=== PATIENT | female | born 1995 | race Two or more races ===

== ENCOUNTER 2016-11-05 23:30 | Emergency (ER) | payer OTHER ==
[2016-11-06 00:08] VITALS: BP 104/60; PULSE 78; TEMP 98.5; BMI 30.1
--- NOTE | 2016-11-06 00:43 | PDOC ---
History of Present Illness - General Chief Complaint: Pain Stated Complaint: CHEST DISCOMFORT Time Seen by Provider: 11/06/16 00:32 History Source: Patient Exam Limitations: No Limitations - History of Present Illness Initial Comments: 11/06/16 00:39 21yo Female patient presents to ED c/o chest pain that have been ongoing just worse today. Patient reports being 3 months and had 1 bout of diarrhea. Denies abd pain, n/v, vaginal bleeding, back pain, asthma, diff breathing, or any other complaints at this time. She reportedly takes Pre- vit, and Iron tabs. Timing/Duration: other (Today) Severity: mild Modifying Factors: worse with: cold therapy, eating, immobilization, medication , movement, rest, other Associated Symptoms: denies: denies symptoms, chest pain, cough, diaphoresis, fever/chills, headaches, loss of appetite, malaise, nausea/vomiting, rash, seizure, shortness of breath, syncope, weakness, other Aspirin Received prior to arrival: No: no aspirin today, unknown, 81 mg x 1, 81 mg x 2, 81 mg x 3, 81 mg x 4, 325 mg x 1, provided at home, provided by EMS, provided by ED [facility] Contraindications(Core Measure): No: Allergy, Other, Active Blding w/i 24 hrs., Plavix, Receiving Warfarin Past History - Travel Traveled outside of the country in the last 30 days: No Close contact w/someone who was outside of country & ill: No - Past Medical History Allergies/Adverse Reactions: Allergies Allergy/AdvReac Type Severity Reaction Status Date / Time No Known Allergies Allergy Verified 11/05/16 23:57 Home Medications: Ambulatory Orders Pnv No.122/Iron/Folic Acid [ Multi Tablet] 1 each PO DAILY 10/03/16 Ferrous Sulfate [Feosol] 325 mg PO BID 11/05/16 Anemia: Yes - Reproductive History (#): 1 Para: 0 Spontaneous : 0 - Psycho/Social/Smoking Cessation Hx Anxiety: No Suicidal Ideation: No Smoking History: Never smoked Hx Alcohol Use: No Drug/Substance Use Hx: No Substance Use Type: None Review of Systems - Review of Systems Able to Perform ROS?: Yes Is the patient limited Spanish proficient: No Constitutional: No: Chills, Fever Respiratory: No: Cough, Shortness of Breath Cardiac (ROS): Yes: Chest Pain ABD/GI: Yes: Diarrhea. No: Nausea, Vomiting : No: Burning, Dysuria Musculoskeletal: No: Back Pain Neurological: No: Headache, Dizziness All Other Systems: Reviewed and Negative *Physical Exam - Vital Signs Last Vital Signs Temp Pulse Resp BP Pulse Ox 98.5 F 78 16 104/60 98 11/05/16 23:57 11/05/16 23:57 11/05/16 23:57 11/05/16 23:57 11/05/16 23:57 - Physical Exam General Appearance: Yes: Nourished, Appropriately Dressed HEENT: positive: EOMI, LUCIA, Normal ENT Inspection, Normal Voice, Symmetrical, Pharynx Normal Neck: positive: Trachea midline, Supple. negative: Lymphadenopathy (R), Lymphadenopathy (L) Respiratory/Chest: positive: Lungs Clear, Normal Breath Sounds. negative: Chest Tender, Respiratory Distress, Accessory Muscle Use, Labored Respiration Cardiovascular: positive: Regular Rhythm, Regular Rate Gastrointestinal/Abdominal: positive: Normal Bowel Sounds, Soft Musculoskeletal: positive: Normal Inspection. 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 *DC/Admit/Observation/Transfer Diagnosis at time of Disposition: Chest pain of unknown etiology - Discharge Dispostion Disposition: HOME Condition at time of disposition: Good Admit: No - Patient Instructions Printed Discharge Instructions: DI for Atypical Chest Pain Additional Instructions: FOLLOW UP WITH YOUR PRIMARY CARE PROVIDER THIS WEEK. CALL TO SCHEDULE APPOINTMENT. TYELNOL FOR PAIN. DRINK LOTS OF FLUIDS. IF SYMPTOMS WORSEN, RETURN FOR FURTHER EVALUATION. Print Language: ESTONIAN
--- NOTE | 2016-11-06 01:11 | PDOC ---
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 CALL TO SCHEDULE APPOINTMENT. TYELNOL FOR PAIN. DRINK LOTS OF FLUIDS. IF SYMPTOMS WORSEN, RETURN FOR FURTHER EVALUATION. Print Language: LEBANESE
--- NOTE | 2016-11-06 09:55 | EKG ---
Test Reason : Blood Pressure : / mmHG Vent. Rate : 066 BPM Atrial Rate : 066 BPM P-R Int : 166 ms QRS Dur : 076 ms QT Int : 398 ms P-R-T Axes : 053 084 055 degrees QTc Int : 417 ms NORMAL SINUS RHYTHM WITH SINUS ARRHYTHMIA NORMAL ECG NO PREVIOUS ECGS AVAILABLE Confirmed by MURIEL KARIMI, LEROY ([id number]) on 11/06/2016 9:55:03 AM Referred By: Overread By: LEROY LLAMAS MD
== END 2016-11-06 01:24 | disposition home or self-care (01) ==
LOC: JER 23:30
DX: O26.892 Other specified pregnancy related conditions, second trimester (principal); R07.89 Other chest pain
CPT/HCPCS: 93005; 93010; 99281-25

== ENCOUNTER 2018-11-15 22:44 | Emergency (ER) | payer OTHER ==
[2018-11-15 22:51] VITALS: BP 117/60; PULSE 78; TEMP 98.3; BMI 29.9
--- NOTE | 2018-11-15 23:21 | PDOC ---
History of Present Illness - General Chief Complaint: Rash Stated Complaint: BUMP/RASH Time Seen by Provider: 11/15/18 23:20 - History of Present Illness Initial Comments: 23yo F with PMH of eczema presenting with a rash on the left side of her neck x 3 days. She also reports a round ball under her jaw (likely submandibular lymph node) that has grown in size in the past two days and is painful to the touch. Patient also notes a different rash on the right side of her neck and also on her right arm that has been chronic and treated with a steroid cream with minimal relief. She was evaluated for these rashes about four or five months ago at an ED in [place] and prescribed an oral medicine that she cannot name. Denies history of immunosuppression. 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 No fever, chills, night sweats, chest pain or shortness of breath. Past History - Past Medical History Allergies/Adverse Reactions: Allergies Allergy/AdvReac Type Severity Reaction Status Date / Time No Known Allergies Allergy Verified 11/15/18 22:51 Home Medications: Ambulatory Orders No122/Iron/Folic Acid [ Multi Tablet] 1 each PO DAILY 10/03/16 Ferrous Sulfate [Feosol] 325 mg PO BID 11/05/16 Valacyclovir HCl [Valtrex -] 1,000 mg PO BID #14 tablet 11/16/18 Anemia: Yes COPD: No - Reproductive History (#): 1 Para: 0 Spontaneous : 0 - Suicide/Smoking/Psychosocial Hx Smoking History: Never smoked Hx Alcohol Use: No Drug/Substance Use Hx: No Substance Use Type: None Review of Systems - Review of Systems Comments:: Constitutional: no fever, no chills HEENT: no throat pain, no dysphagia Cardiovascular: no chest pain, no palpitations Respiratory: no cough, no shortness of breath Gastrointestinal: no abdominal pain, no nausea Genitourinary: no dysuria, no frequency Musculoskeletal: no myalgia, no arthralgia Skin: +rash, +itching Neurologic: no headache, no dizziness *Physical Exam - Vital Signs Last Vital Signs Temp Pulse Resp BP Pulse Ox 98.3 F 78 18 117/60 99 11/15/18 22:49 11/15/18 22:49 11/15/18 22:49 11/15/18 22:49 11/15/18 22:49 - Physical Exam Comments: General: Awake, alert, and fully oriented, in no acute distress Head: No signs of trauma Eyes: EOMI, sclera anicteric ENT: Moist mucus membranes; enlarged and tender left submandibular gland Neck: Normal ROM, supple Lungs: Lungs clear, Normal breath sounds Cardio: Regular rhythm, S1 and S2 present Abdomen: Soft, nontender. No guarding, no rebound, no masses Extremities: Normal range of motion, Distal pulses present SKIN: dark, dry, itchy, inflamed patches of skin on neck and right arm; cluster of pink vesicles~1cm on left lateral neck, mildly tender to palpation without bleeding or discharge Neurologic: Cranial nerves II through XII grossly intact. Normal speech Moderate Sedation - Procedure Monitoring Vital Signs: Procedure Monitoring Vital Signs Temperature 98.3 F 11/15/18 22:49 Pulse Rate 78 11/15/18 22:49 Respiratory Rate 18 11/15/18 22:49 Blood Pressure 117/60 11/15/18 22:49 O2 Sat by Pulse Oximetry (%) 99 11/15/18 22:49 Medical Decision Making - Medical Decision Making 23yo F with PMH of eczema presenting with a rash on the left side of her neck x 3 days. Presentation consistent with herpetic rash overlying areas of eczema; patient denies history of chickenpox so it is likely not shingles Ordered 1g Valtrex Referred patient to [facility] as she does not have primary care Discharged *DC/Admit/Observation/Transfer Diagnosis at time of Disposition: Rash - Discharge Dispostion Disposition: HOME Condition at time of disposition: Stable - Prescriptions Prescriptions: Valacyclovir HCl [Valtrex -] 1,000 mg PO BID #14 tablet - Referrals Referrals: [facility] [place] [facility] [place] [Provider Group] - Patient Instructions Additional Instructions: You came to the ED for a rash. Prescriptions sent to your pharmacy: Valtrex 1000mg: Take 1 tablet twice a day for the seven days Follow-up with a primary care doctor in one week to discuss this ED visit and to further evaluate your rash. You have been referred to the [facility]. Call and make an appointment at the number provided. Seek immediate medical attention for: rash spreading near your eye or ear, pain or itching that is not responding to treatment, any area or rash that is red/hot /has an increase in pain/itching/discharge, fever or chills, nausea and vomiting , lightheadedness. If you think you have an emergency, call for medical help right away. - Post Discharge Activity
--- NOTE | 2018-11-15 23:34 | PDOC ---
Attending Attestation - HPI HPI: 11/16/18 00:52 The patient is a 23 year old female with past medical history of eczema who presents to the ED with rash on her neck. Patient states shes had a prior rash on the right side of her neck which her PCP diagnosed as eczema and was given steroid cream which hasnt helped. Now, the patient developed a left sided neck rash that was initially itchy but became tender and noted the presence of a left neck lymph node. Denies any discharge. Denies use of new detergents, soaps , new clothing. Denies any exposure to animals, no recent travel. - Physicial Exam PE: 11/16/18 00:52 GENERAL: Awake, alert, and fully oriented, in no acute distress ENT: Auricles normal inspection, hearing grossly normal, nares patent, oropharynx clear without exudates. Moist mucosa NECK: Normal ROM, supple,1 cm raised lesion on slightly erythematous, no fluctuance on left side of neck, lymph node present on left neck, no JVD, or masses EXTREMITIES: Normal range of motion, no edema. No clubbing or cyanosis. No cords, erythema, or tenderness NEUROLOGICAL: Cranial nerves II through XII grossly intact. Normal speech, normal gait SKIN: Warm, Dry, normal turgor, no rashes or lesions noted - Medical Decision Making 11/16/18 01:00 Documentation prepared by Indira Segovia, acting as medical front desk specialist for Violetta Galindo MD. 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 She will be sent home with valtrex. Most likely contracted at work. 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 Tells me that she was scratching her neck and she got bumps on her neck that are painful. Home with valtrex Follow with PMD <Violetta Galindo - Last Filed: 11/16/18 06:15>
[2018-11-16] MEDS ORDERED: valACYclovir HCL 1000 MG TABLET PO ONE (00:39)
[2018-11-16] MEDS ORDERED: valACYclovir HCL 500 MG TABLET (FP) ONE (00:45)
== END 2018-11-16 00:53 | disposition home or self-care (01) ==
LOC: JER 22:44
DX: B00.89 Other herpesviral infection (principal); R21 Rash and other nonspecific skin eruption; R59.0 Localized enlarged lymph nodes
CPT/HCPCS: 99281-25

== ENCOUNTER 2019-01-13 08:47 | Emergency (ER) | payer OTHER ==
[2019-01-13 08:56] VITALS: BP 125/74; PULSE 82; TEMP 98.2; BMI 30.2
--- NOTE | 2019-01-13 08:58 | PDOC ---
History of Present Illness - General Chief Complaint: Lightheaded Stated Complaint: DIZZY/WEAK Time Seen by Provider: 01/13/19 08:56 History Source: Patient, Significant Other (Boyfriend present at bedside), Old Records Exam Limitations: No Limitations - History of Present Illness Initial Comments: HPI: 23 y/o female presenting to [facility] ER complaining of dizziness and weakness. 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 Feels like the room is spinning, which improves when closing her eyes. Endorses generalized weakness without focality. Denies chest pain but endorses a brief and resolved period of shortness of breath and blurry vision. Pt endorses a history of similar symptoms while traveling in busses and cars but believes todays episode was more severe. Symptoms have significantly improved at time of interview without intervention. Triage note indicates pt reported slurred speech. Pt states she did not appreciate slurred speech but her business intelligence director mentioned it. She did not loose consciousness. Able to recall entire incident. Social Hx: - EtOH: Denies - Tobacco: Denies - Street drugs: Denies - Caffeine: endorses drinking cup of coffee this morning - Denies OTC vitamins or supplements Medical Hx: - Eczema - IUD placed 2016, unable to recall name of device Past History - Past Medical History Allergies/Adverse Reactions: Allergies Allergy/AdvReac Type Severity Reaction Status Date / Time No Known Allergies Allergy Verified 11/15/18 22:51 Home Medications: Ambulatory Orders No122/Iron/Folic Acid [ Multi Tablet] 1 each PO DAILY 10/03/16 Ferrous Sulfate [Feosol] 325 mg PO BID 11/05/16 Valacyclovir HCl [Valtrex -] 1,000 mg PO BID #14 tablet 11/16/18 Anemia: No COPD: No - Reproductive History (#): 1 Para: 0 Spontaneous : 0 - Immunization History Immunization Up to Date: Yes - Suicide/Smoking/Psychosocial Hx Smoking History: Never smoked Hx Alcohol Use: No Drug/Substance Use Hx: No Substance Use Type: None Review of Systems - Review of Systems Able to Perform ROS?: Yes Comments:: In addition to that documented in the HPI above, the additional ROS was obtained : Constitutional: Denies fevers or chills Head: Denies headache or hearing changes. ENMT: Denies sore throat CV: Denies chest pain Resp: Per HPI GI: Denies vomiting or diarrhea : Denies painful urination, increased urinary frequency, hematuria, or vaginal discharge MSK: Denies recent trauma Skin: Denies new rashes Neuro: Denies new numbness or tingling or weakness Endocrine: Denies polyuria Heme: Denies bleeding or bruising *Physical Exam - Vital Signs Last Vital Signs Temp Pulse Resp BP Pulse Ox 98.2 F 82 18 125/74 98 01/13/19 08:52 01/13/19 08:52 01/13/19 08:52 01/13/19 08:52 01/13/19 08:52 - Physical Exam Comments: Constitutional: Well-developed, well-nourished, nontoxic adult female in no acute distress or obvious discomfort. Found semi-fowlers on hospital bed. Alert and oriented x4. Answered all questions appropriately and completely. Speech was non-labored, non-pressured. Head: Normocephalic. No obvious external signs of trauma. Eyes: Prescription glasses on face. Pupils 3mm and PERRL bilaterally. EOMI. No vertical or horizontal nystagmus. Sclerae white. Conjunctiva moist and not injected. Ears: Hearing grossly intact. Nose: No nasal discharge. Neck: Supple, trachea is midline. Cardiovascular / Chest: Regular rate and regular rhythm. No murmur, rubs, clicks, or gallops. Peripheral pulses: radial pulses full. Respiratory: Breathing unlabored. Equal chest rise and fall. Clear to auscultation bilaterally. No stridor, no wheezing, no rhonchi. Gastrointestinal: abdomen is soft, non-tender, non-distended. Neuro: Alert and oriented. Moving all four extremities spontaneously. No focal deficits. Cranial nerves intact. Sensation to all four extremities intact. Upper and lower extremities: proximal and distal strength 5/5. Motion Picture Commentator strength 5/ 5 - equal and symmetric. Plantar flexion and dorsiflexion 5/5. No nuchal rigidity. Intact rapid alternating movements and heel to mckenna. Skin: Warm, dry, and intact. : No R or L CVA tenderness. Psych: Affect: appropriate. Mood: normal. Moderate Sedation - Procedure Monitoring Vital Signs: Procedure Monitoring Vital Signs Temperature 98.2 F 01/13/19 08:52 Pulse Rate 82 01/13/19 08:52 Respiratory Rate 18 01/13/19 08:52 Blood Pressure 125/74 01/13/19 08:52 O2 Sat by Pulse Oximetry (%) 98 01/13/19 08:52 ED Treatment Course - LABORATORY CBC & Chemistry Diagram: 01/13/19 09:48 01/13/19 09:48 Medical Decision Making - Medical Decision Making *Reviewed vital signs, nursing notes, and prior visit documentation (if available). 23 y/o previously healthy female presenting for resolving episode of dizziness and weakness while riding in bus. H/o of similar symptoms with car and bus rides in the past. Also reports minor URI last week. Afebrile. Vitals unremarkable for hypotension or tachycardia. Physical exam as described above. Suspect motion sickness versus BPPV. Will obtain EKG to eval for arrhythmia ( low suspicion). CBC, BMP, and serum obtained. Unremarkable for anemia , leukocytosis, or significant electrolyte derangement. Serum negative. Ordered IVFB and Meclizine for symptoms relief. EKG revealed sinus rhythm without ectopy. Pt reassessed and states she feels much better. Able to walk unassisted without difficulty or worsening of symptoms. Discussed imaging and laboratory results with pt. Answered all questions. Provided return precautions. Pt expressed verbal understanding and agreement with plan to discharge home with outpatient follow up. Provided referral to resident clinic because Dr. Jones is out of the clinic for the next several weeks. *DC/Admit/Observation/Transfer Diagnosis at time of Disposition: Dizziness, Generalized weakness - Discharge Dispostion Disposition: HOME Condition at time of disposition: Good Decision to Admit order: No - Referrals Referrals: Cecil Jones MD [Primary Care Provider] - [facility] [place] [[place] Group] - Patient Instructions Printed Discharge Instructions: DI for Benign Paroxysmal Positional Vertigo Additional Instructions: You were seen today for an episode of dizziness and weakness. Your blood work was normal. Your test was negative. The symptoms are likely related to your motion sickness or a condition called benign positional vertigo. These are not life threatening conditions. Follow up with your primary care doctor or the resident clinic within the next week to make sure you are healing. You will need to call to make an appointment. Go to the nearest emergency department if your condition worsens or you feel like you need additional emergency evaluation. Print Language: SWEDISH - Post Discharge Activity Forms/Work/School Notes: Back to Work
[2019-01-13] MEDS ORDERED: LACTATED RINGERS SOLUTION 1000 ML INFUS.BAG IV ONE (09:21)
[2019-01-13] MEDS ORDERED: MECLIZINE HCL 25 MG TABLET (FP) PO ONE (09:50)
--- NOTE | 2019-01-13 09:58 | PDOC ---
Attending Attestation - Resident Resident Name: Fabrizio Chen - ED Attending Attestation I have performed the following: I have examined & evaluated the patient, The case was reviewed & discussed with the resident, I agree w/resident's findings & plan, Exceptions are as noted - HPI HPI: 01/13/19 10:05 The patient is a 23-year-old female with no significant past medical history presents to the emergency department with intermittent room spinning dizziness since this morning. 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 She notified the business objects consultant who suggested she come to the hospital but she declined. The room spinning dizziness occurred multiple times when she looked down at her phone while on the bus and after all the children were dropped off, she decided to come get checked out. The patient denies experiencing headache, focal weakness/numbness, chest pain, LOC or diaphoresis. Denies slurred speech despite this being written in the triage note. The patient reports similar symptoms while riding buses and cars in the past; however, the symptoms were not this severe. The patient reports the dizziness has significantly improved since arriving to the ED. REports a runny nose and cough last week that resolved a few days ago. Denies fevers, chills, SOB, abd pain, LE edema, urinary sxs. 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 The patient reports she has an IUD in place and is sexually active. Denies the use of drug, alcohol or tobacco use. PCP: Dr. Jones - Physicial Exam PE: 01/13/19 10:33 GENERAL: Awake, alert, and fully oriented, in no acute distress HEAD: No signs of trauma EYES: PERRLA, EOMI, sclera anicteric, conjunctiva clear ENT: Auricles normal inspection, hearing grossly normal, nares patent, oropharynx clear without exudates. Moist mucosa NECK: Normal ROM, supple, no lymphadenopathy, JVD, or masses LUNGS: Breath sounds equal, clear to auscultation bilaterally. No wheezes, and no crackles HEART: Regular rate and rhythm, normal S1 and S2, no murmurs, rubs or gallops ABDOMEN: Soft, nontender, normoactive bowel sounds. No guarding, no rebound. No masses EXTREMITIES: Normal range of motion, no edema. No clubbing or cyanosis. No cords , erythema, or tenderness BACK: No midline spinal tenderness in cervical/thoracic/lumbar region NEUROLOGICAL: Normal speech, cranial nerves intact, negative pronator drift, 5/ 5 strength in all 4 extremities, normal sensation to light touch in all 4 extremities, normal cerebellar exam, normal gait, normal reflexes and tone SKIN: Warm, Dry, normal turgor, no rashes or lesions noted. - Medical Decision Making 01/13/19 09:59 23yo healthy female presents to the ED with room spinning dizziness when she looks down a/w nausea. Vitals wnl, exam wnl, neuro intact. Likely BPPV given recent URI and positional sxs. Plan to check labs, UPT, treat with IVF and meclizine, reassess. 01/13/19 11:42 Pt feeling much better Ambulating in ED with steady gait, is asymptomatic Labs wnl Plan for DC with PMD f/u - her PMD is away until february so included referral to resident clinic Return precautions given I discussed the physical exam findings, ancillary test results and final diagnoses with the patient. I answered all of the patient's questions. The patient was satisfied with the care received and felt comfortable with the discharge plan and treatment plan. The patient will call their primary care physician within 24 hours to arrange follow-up and will return to the Emergency Department with any new, persistent or worsening symptoms. Heart Score/ECG Review #1 01/13/19 09:58 Twelve-lead EKG was performed and reviewed by me. Normal sinus rhythm, rate 66. Normal axis. No ST elevations or T-wave inversions.
[2019-01-13 09:59] LABS: BASO % 0.2 % (0-2.0); EOS % 2.6 % (0-4.5); HEMATOCRIT 40.6 % (32.4-45.2); HEMOGLOBIN 14.1 GM/dL (10.7-15.3); LYMPH % 23.5 % (8-40); MCH 31.1 pg (25.7-33.7); MCHC 34.7 g/dl (32.0-36.0); MEAN CELL VOLUME 89.5 fl (80-96); MEAN PLT VOLUME 8.3 fl (7.5-11.1); NEUT % 61.7 % (42.8-82.8); PLATELET COUNT 196 K/MM3 (134-434); RBC 4.54 M/mm3 (3.60-5.2); RDW 13.2 % (11.6-15.6); WHITE BLOOD COUNT 7.8 K/mm3 (4.0-10.0)
[2019-01-13] MEDS ORDERED: MECLIZINE HCL 25 MG TABLET (FP) ONE (10:02)
[2019-01-13 11:30] LABS: ANION GAP 5 MMOL/L (8-16); BLOOD UREA NITROGEN 9 mg/dL (7-18); CALCIUM 8.1 mg/dL (8.5-10.1); CHLORIDE 108 mmol/L (98-107); CO2 27 mmol/L (21-32); CREATININE 0.7 mg/dL (0.55-1.3); GLUCOSE,RANDOM 79 mg/dL (74-106); POTASSIUM 3.8 mmol/L (3.5-5.1); SODIUM 140 mmol/L (136-145)
--- NOTE | 2019-01-13 13:30 | EKG ---
Test Reason : Blood Pressure : / mmHG Vent. Rate : 066 BPM Atrial Rate : 066 BPM P-R Int : 170 ms QRS Dur : 080 ms QT Int : 396 ms P-R-T Axes : 052 078 046 degrees QTc Int : 415 ms NORMAL SINUS RHYTHM WITH SINUS ARRHYTHMIA NORMAL ECG WHEN COMPARED WITH ECG OF 06-NOV-2016 01:05, NO SIGNIFICANT CHANGE WAS FOUND Confirmed by MD DOMINIC, HOLLY ([id number]) on 01/13/2019 1:30:01 PM Referred By: Confirmed By:HOLLY ALFARO MD
== END 2019-01-13 11:45 | disposition home or self-care (01) ==
LOC: JER 08:47
DX: R53.1 Weakness (principal); R42 Dizziness and giddiness
CPT/HCPCS: 36415; 80048; 84702; 85025; 93005; 93010; 99282-25

== ENCOUNTER 2019-04-24 20:24 | Emergency (ER) | payer OTHER ==
--- NOTE | 2019-04-24 20:31 | PDOC ---
Rapid Medical Evaluation Chief Complaint: Abscess Boil Time Seen by Provider: 04/24/19 20:30 Medical Evaluation: Allergies Allergy/AdvReac Type Severity Reaction Status Date / Time No Known Allergies Allergy Verified 11/15/18 22:51 04/24/19 20:31 I have performed a brief in-person evaluation of this patient. The patient presents with a chief complaint of:L axilla pain and swelling Pertinent physical exam findings:defer to ED provider I have ordered the following:nothing The patient will proceed to the ED for further evaluation. Discharge Disposition - Diagnosis Abscess - Referrals - Patient Instructions - Post Discharge Activity
[2019-04-24 20:32] VITALS: BP 118/78; PULSE 72; TEMP 98.3; BMI 31.4
--- NOTE | 2019-04-24 21:58 | PDOC ---
History of Present Illness - General Chief Complaint: Abscess Boil Stated Complaint: ABSCESS Time Seen by Provider: 04/24/19 20:30 History Source: Patient - History of Present Illness Initial Comments: 04/24/19 22:48 Chief complaint: Abscess Patient is a healthy 23-year-old female who has swelling under her left armpit on and off for 3 months, has gotten worse in the last 3 days, much more painful , no fever. Patient has never had to go to the hospital for this in the past. She states she recently changed her deodorant. No fever GENERAL/CONSTITUTIONAL: No fever, weakness. dizziness HEAD, EYES, EARS, NOSE AND THROAT: No change in vision. No ear pain or discharge. No sore throat. CARDIOVASCULAR: No chest pain RESPIRATORY: No shortness of breath or cough GASTROINTESTINAL: No pain, nausea, vomiting, diarrhea or constipation GENITOURINARY: No dysuria MUSCULOSKELETAL: No neck or back pain SKIN: No rash, + abscess NEUROLOGIC: No headache, vertigo, loss of consciousness, or loss of sensation. GENERAL: The patient is awake, alert, and fully oriented, in no acute distress. HEAD: Normal with no signs of trauma. EYES: Pupils equal, round and reactive to light, sclera anicteric, conjunctiva clear. ENT: pharynx: no erythema, no exudate, uvula midline NECK: supple CHEST: clear, nontender, rr ABD: soft, nontender BACK: no tenderness or signs of injury EXTREMITIES: 4 cm x 3 cm abscess left axilla, no drainage, no gross cellulitis, painful range of motion, no other swelling, neurovascular intact. Rest of extremities, normal range of motion, no edema. NEUROLOGICAL: Normal speech, normal gait. SKIN: Warm, Dry Past History - Past Medical History Allergies/Adverse Reactions: Allergies Allergy/AdvReac Type Severity Reaction Status Date / Time No Known Allergies Allergy Verified 04/24/19 20:32 Home Medications: Ambulatory Orders Cephalexin [Keflex] 1,000 mg PO BID #28 capsule 04/24/19 Sulfamethoxazole/Trimethoprim [Bactrim Ds -] 1 tab PO BID #14 tablet 04/24/19 Anemia: No COPD: No - Reproductive History (#): 1 Para: 0 Spontaneous : 0 - Immunization History Immunization Up to Date: Yes - Suicide/Smoking/Psychosocial Hx Smoking History: Never smoked Hx Alcohol Use: No Drug/Substance Use Hx: No Substance Use Type: None *Physical Exam - Vital Signs Last Vital Signs Temp Pulse Resp BP Pulse Ox 98.3 F 72 18 118/78 100 04/24/19 20:29 04/24/19 20:29 04/24/19 20:29 04/24/19 20:29 04/24/19 20:29 Procedures - Incision and Drainage I&D Site: Left: Axilla Anesthesia: 2% Lidocaine Blade Size: 11 Attempts: 1 Iodinated Packin/ in Plain Packing: Yes Complications: none Dressing: Yes Progress: 04/24/19 22:56 Copious amount of pus and drainage Medical Decision Making - Medical Decision Making 04/24/19 22:56 Patient with abscess to left axilla, no medical problems, fluctuant, no gross cellulitis, large and waxing and waning for 3 months getting worse in the last 3 days. We'll do incision and drainage and put patient on antibiotics. She will return in 2 days for packing removal. *DC/Admit/Observation/Transfer Diagnosis at time of Disposition: Abscess - Discharge Dispostion Disposition: HOME Condition at time of disposition: Stable Decision to Admit order: No - Prescriptions Prescriptions: Cephalexin [Keflex] 1,000 mg PO BID #28 capsule Sulfamethoxazole/Trimethoprim [Bactrim Ds -] 1 tab PO BID #14 tablet - Referrals Referrals: Cecil Jones MD [Primary Care Provider] - - Patient Instructions Printed Discharge Instructions: DI for Incision and Drainage of a Skin Abscess Additional Instructions: Leave packing in place, you may shower but be careful not to have the packing come out. Take the Bactrim and the Keflex, both twice a day until finished Change bandage as needed Return in 2 days to have packing removed and have reevaluation Return sooner if fever or feeling sicker - Post Discharge Activity
[2019-04-24] MEDS ORDERED: LIDOCAINE HCL 2% (50ML VIAL) SQ ONE (22:01)
[2019-04-24] MEDS ORDERED: IBUPROFEN 600 MG TABLET (FP) PO ONE ×2 (22:01→22:11)
[2019-04-24] MEDS ORDERED: LIDOCAINE HCL 2% (20ML MULTI-DOSE VIAL) NR ONE (22:03)
== END 2019-04-24 23:02 | disposition home or self-care (01) ==
LOC: JERFT 20:24
PROC: 0X950ZZ Drainage of Left Axilla, Open Approach (ICD-10-PCS; principal; 2019-04-24)
PROC: 3E023BZ Introduction of Anesthetic Agent into Muscle, Percutaneous Approach (ICD-10-PCS; 2019-04-24)
DX: L02.412 Cutaneous abscess of left axilla (principal)
CPT/HCPCS: 10060; 96372; 99281-25

== ENCOUNTER 2019-04-25 16:38 | Emergency (ER) | payer OTHER ==
[2019-04-25 16:49] VITALS: BP 127/81; PULSE 78; TEMP 98.4; BMI 25.0
--- NOTE | 2019-04-25 17:12 | PDOC ---
Suture Removal/Wound Check HPI - History of Present Illness Chief Complaint: Revisit,Wound Recheck Stated Complaint: ABCESS RUPTURED/FOLLOW UP Time Seen by Provider: 04/25/19 16:56 History Source: Yes: Patient Exam Limitations: Yes: No Limitations Treated at: [facility] ED - Previous ED Treatment Type of procedure performed on last visit: Yes: I&D of Abscess Antibiotics Prescribed: Yes Past History - Travel Traveled outside of the country in the last 30 days: No Close contact w/someone who was outside of country & ill: No - Past Medical History Allergies/Adverse Reactions: Allergies Allergy/AdvReac Type Severity Reaction Status Date / Time No Known Allergies Allergy Verified 04/25/19 16:49 Home Medications: Ambulatory Orders Cephalexin [Keflex] 1,000 mg PO BID #28 capsule 04/24/19 Sulfamethoxazole/Trimethoprim [Bactrim Ds -] 1 tab PO BID #14 tablet 04/24/19 Acetaminophen [Tylenol] 650 mg PO Q4H 04/25/19 Anemia: No COPD: No - Reproductive History (#): 1 Para: 0 Spontaneous : 0 - Immunization History Immunization Up to Date: Yes - Suicide/Smoking/Psychosocial Hx Smoking History: Never smoked Have you smoked in the past 12 months: No Information on smoking cessation initiated: No Hx Alcohol Use: No Drug/Substance Use Hx: No Substance Use Type: None Suture Removal/Wound Check PE - Physical Exam Laceration/Wound Check Symptoms: reports: None Current Severity Level: None *Review of Systems - Review of Systems Able to Perform ROS?: Yes Constitutional: Yes: Symptoms Reported, See HPI, Fever, Malaise HEENTM: No: Symptoms Reported Integumentary: Yes: Symptoms Reported, See HPI, Other (tenderness to left axilla / site of incision and drainage) All Other Systems: Reviewed and Negative *Physical Exam - Vital Signs Last Vital Signs Temp Pulse Resp BP Pulse Ox 98.4 F 78 18 127/81 100 04/25/19 16:41 04/25/19 16:41 04/25/19 16:41 04/25/19 16:41 04/25/19 16:41 - Physical Exam General Appearance: Yes: Nourished, Appropriately Dressed, Apparent Distress, Mild Distress HEENT: positive: LUCIA, Normal ENT Inspection, TMs Normal, Pharynx Normal Neck: positive: Supple. negative: Tender Respiratory/Chest: positive: Lungs Clear Gastrointestinal/Abdominal: positive: Soft Extremity: positive: Other (site of incision and drainage left midpoint axilla with continued oozing serosanguineous fluid, mildly purulent Induration is approximately 3 cm Able to express from inferior aspect informedapproximately 30 mL more of fluid.Wound was cleaned, repacked with approximately 1 cm of quarter inch gauze and dressing. Patient encouraged to allow to continue to drainand remove packing tomorrow in shower at home.) Integumentary: positive: Normal Color Neurologic: positive: beater out leveling machine II-XII NML intact, Fully Oriented, Alert, Normal Mood/ Affect, Normal Response, Motor Strength 5/5 Procedures - Incision and Drainage I&D Site: Left: Axilla Betadine cleansed: Yes Iodinated Packin/ in Plain Packing: Yes Complications: none Dressing: Yes *DC/Admit/Observation/Transfer Diagnosis at time of Disposition: Wound check, abscess - Discharge Dispostion Disposition: HOME Condition at time of disposition: Stable Decision to Admit order: No - Referrals Referrals: Tristian Og [Staff Physician] - - Patient Instructions Printed Discharge Instructions: DI for Wound Infection Additional Instructions: Rest, keep area elevated. Avoid strenuous activity or exercise until wound is healed Use hot soaks to area to bring more blood to the surface and encourage drainage May change dressings as needed to keep clean - trying to avoid removal of packing for 2 days. If packing needs to be changed, return to emergency department or with your followup physician for wound care and evaluation and repacking as needed If packing needs to be removed, then in 2 days, while in the shower remove dressing and quickly pull the packing taken out. Allow water from shower to wash area thoroughly for 2-3 minutes, and pat dry upon exit of shower and replace dressing. Change his dressing daily until the wound is completely healed. May use Tylenol or Motrin for mild pain relief Use stronger medications as directed and prescribed Continue all medications as prescribed Followup with private physician in 2-3 days for wound check Return to emergency Department for worsening swelling, pain, redness, fevers as needed - Post Discharge Activity Forms/Work/School Notes: Back to Work
== END 2019-04-25 17:25 | disposition home or self-care (01) ==
LOC: JERFT 16:38
DX: Z48.817 Encounter for surgical aftercare following surgery on the skin and subcutaneous tissue (principal); Z48.01 Encounter for change or removal of surgical wound dressing; L02.412 Cutaneous abscess of left axilla
CPT/HCPCS: 99281-25